=== PATIENT | female | born 1960 | race Caucasian/White ===

== ENCOUNTER → 2016-08-28 | Day surgery (SDC) | payer BC ==
[~2016-08-28] MED LIST: BUPIVACAINE/EPINEPHRINE 0.5% PF 30 ML VIAL ONE; ISOSULFAN BLUE 50 MG/5 ML VIAL SQ ONE; LACTATED RINGER'S 1000 ML INJ 1,000 ML ONE; LIDOCAINE 1%/EPINEPHrine 1:100,000 SOLN 20 ML VIAL ONE; MIDAZOLAM HCL 2 MG/2 ML VIAL ONE; ONDANSETRON HCL 4 MG/2 ML VIAL IV PUSH ONE; PROPOFOL 200 MG/20 ML AMP IV ONE; ceFAZolin INJ 1,000 MG VIAL ONE
--- NOTE | 2016-08-28 13:40 | TN ---
cc: BROWN HUERTA MD,BJ HURTADO MD, M.D., JOSEPH D. M.D. DATE OF SURGERY 08/28/2016 PREOPERATIVE DIAGNOSIS Right breast cancer POSTOPERATIVE DIAGNOSIS Right breast cancer PROCEDURE injection of Lymphazurin blue dye for lymphatic mapping Needle-localized excisional quadrantectomy right breast 6 o'clock position, identification of three Gem nodes and some enlarged axillary adrianna tissue. ANESTHESIA General SURGEON Dr. Novoa PROCEDURE The patient taken to the operating room, placed in the supine position. After anesthesia, her right breast is prepped with Betadine. Radiology placed a guidewire approximately at the 5 o'clock position coursing slightly in an inferior to superior direction medial to lateral. After injecting Lymphazurin blue dye, we then performed a lymphatic mapping. A hot spot in the axillary region, three sentinel nodes were removed first one ex vivo count of 50, second one ex vivo of 454 and a third one that is small with an ex vivo count of 23, none of these have blue dye in them. She had some slightly enlarged lymph nodes that were removed and labeled as such axillary adrianna tissue. This area was then closed with a 3-0 Vicryl and the skin was closed with a 4-0 Vicryl. Steri-Strips were applied. Sterile bandage applied. Then we direct our attention to the right breast at the nipple-areolar complex. The guidewire was placed previously. We were able to use the periareolar incision dissecting down cutting the wire at the skin level and resecting the specimen with adequate margins by exam. This was sent down to radiology after marking it with a short stitch superiorly and a long stitch placed laterally. The specimen mammogram stitch clip in the abnormality appears to be removed. No other gross abnormalities palpated. She does have somewhat fibrocystic disease in her breast and somewhat dense breasts throughout, but no palpable mass appreciated. After this was done, we then irrigate. The deep layer was closed with 3-0 Vicryl and skin was closed with 4-0 Vicryl. Steri-Strips applied. Sterile bandage applied. The patient tolerated the procedure well with no immediate postop complications. MD ALEN Mohr/NORIS /1:14 PM /1:30 PM BRUNILDA
== END | disposition home or self-care (01) ==
LOC: ESDC 07:19
PROVIDERS: ATTEND Surgery
DX: C50.911 Malignant neoplasm of unspecified site of right female breast (principal)
CPT/HCPCS: 00400; 01610; 19125; 38525; 38792; 88307; 88309; J0690; J2250; J2405; J3010; J7120; Q9968; 88305

== ENCOUNTER → 2016-09-11 | Day surgery (SDC) | payer BC ==
[~2016-09-11] MED LIST changes: +ACETAMINOPHEN 1000 MG/100 ML VIAL IV ONE; +HEPARIN SODIUM - IV 10,000 UNITS/10 ML VIAL ONE; -ISOSULFAN BLUE 50 MG/5 ML VIAL SQ ONE; -PROPOFOL 200 MG/20 ML AMP IV ONE; +PROPOFOL 500 MG/50 ML BTL IV ONE; +SODIUM CHLORIDE 0.9% INJ 10 ML ONE
--- NOTE | 2016-09-11 10:00 | TN ---
cc: SUDHEER HALL MD,JULIAN HAMLIN M.D. DATE OF SURGERY: 09/11/2016 PREOPERATIVE DIAGNOSIS Right breast cancer with positive inferior margin. POSTOPERATIVE DIAGNOSIS Right breast cancer with positive inferior margin. PROCEDURE Re-excision lumpectomy right breast to obtain clear margins. ANESTHESIA TIVA. SURGEON Dr. Novoa INDICATION This is a pleasant 55-year-old female who was found to have a right-sided breast cancer. She underwent breast conservation and was found to have some positive nodes and also positive inferior margin at the quadrantectomy site. Plans were made for re-excision of the positive margin at the inferior edge the patient has elected not to have an [id number]-Melf placed at this time. DETAILS OF PROCEDURE The patient is taken to the operating room and placed in the supine position. After anesthesia her right breast is prepped with Betadine. A timeout was done. The nipple-areolar complex is identified. The previous incision is opened with Metzenbaums cutting a suture. The inferior margin is then resected with sharp dissection just underneath the skin all the way down to the chest wall. It is marked at the inferior margin with a short stitch placed at the superior edge of the specimen and a long stitch placed at the lateral edge for orientation for the pathologist. The area is then irrigated. Hemostasis is assured with the electrocautery device. No other abnormalities are fell within the breast except for the typical postoperative change. We then close the skin with a 4-0 running subcuticular Vicryl suture. Sterile bandage is applied. The patient tolerated the procedure well and had no immediate post-op complication. Julian Novoa MD JDB/BT /9:32 AM /9:42 AM
== END | disposition home or self-care (01) ==
LOC: ESDC 07:32
PROVIDERS: ATTEND Surgery
DX: C50.911 Malignant neoplasm of unspecified site of right female breast (principal)
CPT/HCPCS: 00400; 19301; 88307; J0131; J0690; J2250; J2405; J3010; J7120; J1644